=== PATIENT | female | born 1960 | race Caucasian/White ===

== ENCOUNTER 2018-12-30 06:07 | Emergency (ER) | payer OTHER ==
[~2018-12-30] VITALS: Ht 160 cm; Wt 53.5 kg
[2018-12-30 06:14] VITALS: Ht 160 cm; Wt 53.5 kg
[2018-12-30 07:45] LABS: BASOPHIL % 0.2 % (0-2); PLATELET COUNT 311 x10^3mcL (130-400)
[2018-12-30 07:46] LABS: RED CELL DISTRIBUTION WIDTH 15.1 % (11.5-14.5)
[2018-12-30 08:02] LABS: CALCIUM 8.5 mg/dL (8.5-10.1); CARBON DIOXIDE 29.6 mmol/L (21-32); CHLORIDE SERUM 102 mmol/L (98-107); CREATININE SERUM 0.5 mg/dL (0.6-1.0); GFR1 > 60 mL/min; GLUCOSE SERUM 158 mg/dL (74-106); POTASSIUM SERUM 3.5 mmol/L (3.5-5.1); SODIUM SERUM 140 mmol/L (136-145)
[2018-12-30 08:06] LABS: ALKALINE PHOSPHATASE 126 U/L (46-116); ALT/SGPT 52 U/L (14-59); AST/SGOT 40 U/L (15-37); BILIRUBIN TOTAL 0.25 mg/dL (0.20-1.00); MAGNESIUM 1.9 mg/dL (1.8-2.4); TOTAL PROTEIN, SERUM 6.6 g/dL (6.4-8.2)
[2018-12-30 08:07] LABS: ALBUMIN 2.2 g/dL (3.4-5.0)
[2018-12-30 10:24] VITALS: BP 112/63
== END 2018-12-30 10:25 | disposition home or self-care (01) ==
LOC: ED 06:07
PROVIDERS: Emergency Medicine
DX: E86.0 Dehydration (principal); J18.9 Pneumonia, unspecified organism; Z88.6 Allergy status to analgesic agent; Z88.5 Allergy status to narcotic agent
CPT/HCPCS: J0696; J1885; J2060; J7030; Q0092